=== PATIENT | male | born 1955 | race Caucasian/White ===

== ENCOUNTER 2016-08-12 04:35 | Inpatient (IN) | payer SELFPAY ==
--- NOTE | ~2016-08-12 | DS ---
Discharge Summary [id number] [place]. [address] NAME: DORA HERCULES : 51 STATUS : DIS IN PAT#: [id number] AGE: 61 ADM/REG DATE : 08/12/16 MR#: [id number] REPORT SERV DATE: 09/11/16 DICTATED BY: GRETCHEN DWYER DATE: 09/10/16 REPORT STATUS : Draft TRANSCRIBED BY: NELI DATE: 09/10/16 Data Collection from hospitalization DISCHARGE DIAGNOSIS(ES): 1. Coronary artery disease. 2. Peripheral arterial disease. 3. Chronic obstructive pulmonary disease. 4. Hypertension. 5. History of myocardial infarction. 6. Tobacco use. 7. Peripheral vascular disease. 8. Benign prostatic hypertrophy. 9. Esophageal reflux. CONSULTATIONS: 1. Gretchen Rivera M.D. 2. Johnie Brooks LIABILITY CLAIMS REPRESENTATIVE. 3. Dunia Farnsworth MD. PROCEDURES PERFORMED: 1. Ultrasound-guided percutaneous access right common femoral artery, abdominal aortogram, left leg arteriogram, percutaneous angioplasty of left superficial femoral artery (5 mm x 300 mm balloon), angioplasty and stent reconstruction of occluded left external iliac artery (7 mm x 100 mm Protege EverFlex stent), ultrasound-guided percutaneous access left common femoral artery, right leg arteriogram, stent placed in the right external iliac artery (6 mm x 2.5 cm Viabahn stent), 08/13/2016. 2. Cardiac catheterization, 08/14/2016. 3. Median sternotomy, extracorporeal circulation, urgent coronary artery bypass grafting x4 with DUMONT to the LAD, reverse greater saphenous vein graft to the obtuse marginal #1, and reverse greater saphenous vein graft to the posterior lateral branch of the right coronary artery, reverse greater saphenous vein graft from the posterolateral branch graft to the acute marginal, transesophageal echocardiography, endoscopic vein harvest from the right leg, Prevena dressing placement, 08/20/2016. 4. Arterial duplex echo vascular exam of the left lower extremity, 08/12/2016. 5. CT scan of the chest without contrast, 08/14/2016. 6. Carotid blood flow study, 08/15/2016. 7. Vein mapping of the bilateral lower extremities, 08/15/2016. 8. CT-guided placement of anterior 10-Tajik pigtail catheter in right pleural space- thoracentesis, 08/24/2016. MEDICATIONS: Proventil 1 puff via inhaler every four hours as needed, vitamin C 1000 mg twice a day, aspirin 81 mg daily, Lipitor 40 mg at bedtime, Plavix 75 mg daily, [place] 5/325 one to two tablets every four hours as needed, Lopressor 12.5 mg twice a day, Prilosec 10 mg daily, Deltasone 5 mg twice a day, and Spiriva two puffs via inhaler daily. CONDITION AT DISCHARGE: Stable. DISPOSITION: The patient was discharged home on a low-sodium, low-cholesterol, cardiac diet Discharge Summary [id number] [place]. [address] NAME: DORA HERCULES : 51 STATUS : DIS IN PAT#: [id number] AGE: 61 ADM/REG DATE : 08/12/16 MR#: [id number] REPORT SERV DATE: 09/11/16 DICTATED BY: GRETCHEN DWYER DATE: 09/10/16 REPORT STATUS : Draft TRANSCRIBED BY: NELI DATE: 09/10/16 with activities as instructed. He will follow up with Dr. Dunia Farnsworth 10/19/[address] Zafar Denise 09/25/2016. He would follow up with Dr. Gretchen Dwyer as instructed. He would follow up with Dr. Gretchen Rivera 10/18/2016. HOSPITAL COURSE: This is a 61-year-old man who has a long history of smoking and peripheral arterial disease. He developed sudden severe left leg ischemia with the onset of ischemic rest pain. On evaluation, he was motor-sensory intact. He was anticoagulated and was going to be taken semi-emergently for arteriogram and percutaneous revascularization. He was admitted to the hospital at this time for further evaluation and treatment. Upon admission, arterial duplex echo vascular exam of the left lower extremity with color flow Doppler spectral analysis was performed. No flow was identified in the common femoral, superficial femoral artery, or anterior tibial arteries. The following day, the patient was taken to the endovascular suite where he underwent the above-mentioned procedure. He tolerated this well. There were no complications. Heparin drip was continued. On the , the patient had minimal pain at the groin incisions. He denied any numbness, tingling, or weakness of the extremities. He was afebrile. Plavix, aspirin, and statin were continued. The heparin drip was stopped. He was seen by Dr. Gretchen Rivera regarding chest discomfort. The patient reports that he had coronary stents placed by Dr. Osborn more than 5 years ago. He had not seen Dr. Osborn in about five years. The patient describes having chest discomfort over the past six or seven weeks with minimal activity. He had described a few episodes of breast discomfort. The most recent episode of discomfort was on 08/12/2016, which occurred at rest and lasted about 20 minutes. Troponin was normal at 0.03 at the time of this admission. The patient denies orthopnea or PND. He has had no palpitations. He continues to smoke. EKG revealed sinus rhythm with questionable anterior ischemia. He felt it was safe for the patient to proceed with cardiac catheterization given his rest symptoms and known disease. The patient understands and agrees to proceed. The patient was taken to the cardiac label stamper where he underwent the above-mentioned procedure by Dr. Robbin Alvarez. He tolerated this well. There were no complications. The patient was seen by Johnie Brooks NP, regarding multi-vessel coronary artery disease. The cardiac catheterization had revealed multivessel coronary artery disease including 50% calcification to the left main coronary artery, 95% stenosis to the first diagonal, 100% proximal LAD stenosis which was a chronic total occlusion and was approximately 11 mm in length. There was also 90% proximal left circumflex and 90% first obtuse marginal and also 90% end stent stenosis to the RCA with 90% more distal stenosis. There was also apical akinesis and possible aneurysm, and small focal area of anterior akinesis and a small focal area of inferior hypokinesis which could not rule out left ventricular apical mural thrombus. Echocardiogram was requested. It was felt that he would need to undergo coronary artery bypass grafting. On 08/15/2016, the patient was seen by Dr. Dunia Farnsworth regarding concern for COPD and preoperative evaluation. A CT scan of the chest without contrast had been performed and showed mild to moderate upper lobe predominant central lobular emphysema, but otherwise clear from a pulmonary standpoint. He was felt to have underlying emphysematous chronic obstructive pulmonary disease. It was felt that the benefits of surgery would outweigh the risks from a pulmonary standpoint. The patient understood that he may have prolonged mechanical ventilation and respiratory failure after surgery which may make it difficult for him to be extubated and may lead to prolonged life support. Spiriva therapy was started at Dis[facility] [id number] [place]. [address] NAME: DORA HERCULES : 51 STATUS : DIS IN PAT#: [id number] AGE: 61 ADM/REG DATE : 08/12/16 MR#: [id number] REPORT SERV DATE: 09/11/16 DICTATED BY: GRETCHEN DWYER DATE: 09/10/16 REPORT STATUS : Draft TRANSCRIBED BY: NELI DATE: 09/10/16 this time. We could potentially use DuoNeb after BiPAP. He does not want to use albuterol and gave him a faster heart rate prior to surgery at this moment in time. He felt the patient would need to follow up in two months for pulmonary function testing and further help from a pulmonary standpoint with this patient. He was encouraged to stop smoking. He was evaluated by Occupational Therapy. On the , he did have some chest pain at rest during the night. He had no leg pain issues. He was afebrile. Heparin drip continued. A carotid blood flow study was performed as well as vein mapping of the bilateral lower extremities. He was in a normal sinus rhythm. The next day, he said he had a headache with nitro patch. He had no chest pain. He had no leg issues at this time. The patient was unable to participate with physical therapy evaluation. The next day, he was in a sinus rhythm. He had no chest pain for greater than 24 hours. On the , he continued to have headaches with the nitro paste. Heparin drip continued. Over the next couple of days, he remained stable from a cardiovascular standpoint. His legs seemed to be doing better. He had no chest pain. He had been ambulating. On 08/20/2016, he was taken to the operating room where he underwent the above-mentioned procedure by Dr. Zafar Denise. He tolerated this well. There were no complications. On postop day #1, he felt well. He had mild discomfort. He was in a sinus rhythm. He had minimal chest pain. He had no leg pain or neurologic issues. He did have some nausea. Mediastinal chest tube was removed. Diuresis was started. On the , chest x-ray showed apical pneumothorax and right hydropneumothorax. Phenergan was being given as needed for nausea. FiO2 was being weaned as tolerated. He was evaluated by Physical Therapy. The next day, his nausea had improved. He still had some difficulty clearing secretions. He was not eating much. Plavix remained on hold for now. His amiodarone was decreased. Blood pressure was controlled. On 08/24/2016, he still had some nausea. He had no chest pain, shortness of breath, or edema. He did have a bowel movement. Amiodarone was stopped. He was making slow progression. The patient underwent CT-guided placement of an anterior 10- Taj[place] pigtail catheter in the right pleural space. The majority of the pneumothorax was aspirated. On the , he seemed to be feeling better. His nausea had decreased. His appetite was increasing. He did have some pleuritic pain. He had no edema. He felt better off the amiodarone. Heart rate and blood pressure were controlled. Statin and aspirin were continued. On 08/26/2016, the patient said he was feeling better. His chest tube was going to be clamped at midnight. Blood pressure was controlled. His appetite continued to improve. He was ambulating. His nausea had resolved off the amiodarone. Discharge planning was performed. He had no numbness in the bilateral lower extremities. He did have some pain on top of both feet. He remained in a sinus rhythm. On 08/28/2016, he had no new issues. There was no output from the drain. There was no leak in the water seal. He still required 2 L of O2. He was alert and cooperative. The pigtail catheter was discontinued. Plavix would be resumed at discharge. Discharge instructions were given. Due to his improved and stable condition, he was discharged home with the above-stated instructions. Information collected by: Pebbles Pollock I submit the above information as my discharge summary. Discharge Summary [id number] [place]. [address] NAME: DORA HERCULES : 51 STATUS : DIS IN PAT#: [id number] AGE: 61 ADM/REG DATE : 08/12/16 MR#: [id number] REPORT SERV DATE: 09/11/16 DICTATED BY: GRETCHEN DWYER DATE: 09/10/16 REPORT STATUS : Draft TRANSCRIBED BY: NELI DATE: 09/10/16 TG/NELI Gretchen Dwyer M.D. / [id number] CC: Alexus Cooley M.D. Nathan S. Woody, LIABILITY CLAIMS REPRESENTATIVE
--- NOTE | ~2016-08-12 | PRECARD ---
H&P [facility] [address] [place]. [address] NAME: DORA ROSARIO : 51 STATUS : ADM IN [facility]#: [id number] AGE: 61 ADM/REG DATE : 08/12/16 MR#: [id number] REPORT SERV DATE: 08/14/16 DICTATED BY: GRETCHEN RIVERA DATE: 08/14/16 REPORT STATUS : Draft TRANSCRIBED BY: NELI DATE: 08/14/16 DATE OF ADMISSION: 08/12/2016 HISTORY OF PRESENT ILLNESS: Mr. Dora Rosario is a 61-year-old gentleman with chest discomfort. Mr. Rosario reports he had coronary stents placed by Dr. Osborn more than five years ago. He did not see Dr. Greco for about five years. He has known peripheral vascular disease. He has undergone prior right femoral-popliteal bypass. He was admitted with persistent claudication. On 08/13/2016, he underwent angioplasty to the left superficial femoral artery, with stents placed to both the right and left external iliac arteries. He describes having chest discomfort for the last six or seven weeks with minimal activity. He has had few episodes of rest discomfort. His most recent episode of discomfort was on 08/12/2016, which occurred at rest, lasting about 20 minutes. Troponin was normal at 0.03 upon this admission. He denies any orthopnea or PND. He had no palpitations. He continues to smoke. PAST MEDICAL HISTORY: Tobacco use, peripheral vascular disease, BPH, and esophageal reflux. SOCIAL HISTORY: Ongoing tobacco use. Denies alcohol. MEDICATIONS: Aspirin 81, Lipitor 40, Plavix 75, and Protonix. FAMILY HISTORY: Positive for coronary artery disease. REVIEW OF SYSTEMS: A complete review of systems was obtained, pertinent negative and unremarkable except as noted above. All systems addressed. PHYSICAL EXAMINATION: Bp: 135/80. GENERAL: Comfortable, in no acute distress. HEENT: No xanthelasma; lips without cyanosis LUNGS: Clear to auscultation, no wheezes, rales or rhonchi; good breath sounds. COR: No JVD or hepatojugular reflux, no murmurs, rubs or gallops, impulse mid clavicular line without carotid or abdominal bruits; normal S1 and S2. ABDOMEN: Bowel sounds positive, normal activity, without tenderness, masses or hepatosplenomegaly. EXTREMITIES: No edema, cyanosis. SKIN: Normal turgor. H&P [address] [address] NAME: DORA ROSARIO : 51 STATUS : ADM IN [facility]#: [id number] AGE: 61 ADM/REG DATE : 08/12/16 MR#: [id number] REPORT SERV DATE: 08/14/16 DICTATED BY: GRETCHEN RIVERA DATE: 08/14/16 REPORT STATUS : Draft TRANSCRIBED BY: NELI DATE: 08/14/16 Ms: Normal muscle strength, without kyphosis/scoliosis. NEURO/PSYCH: Alert and oriented times 4, no apparent anxiety or depression. LABORATORY DATA: BUN is 14, creatinine 1.1. Hematocrit 41%. Troponin is 0.03. EKG, sinus rhythm with questionable anterior ischemia. ASSESSMENT: Mr. Rosario is a 61-year-old gentleman with known peripheral vascular disease and coronary artery disease. He has undergone coronary stents placed in the . He underwent revascularization to both legs this admission with bilateral iliac stents and left SFA angioplasty. I think it is safe to proceed with cardiac catheterization, given his rest symptoms and known disease. I discussed the risks, benefits, and alternatives of cardiac catheterization, coronary angioplasty with Mr. Rosario. He understands and requests to proceed. I think he would be a reasonable candidate for drug-eluting stent. HONORIO/NELI Gretchen Rivera M.D. / [id number] CC: Gretchen Dwyer M.D.
--- NOTE | ~2016-08-12 | CN ---
Consultation Report [facility] [address] [place]. [address] NAME: DORA ROSARIO : 51 STATUS : ADM IN PAT#: [id number] AGE: 61 ADM/REG DATE : 08/12/16 MR#: [id number] REPORT SERV DATE: 08/14/16 DICTATED BY: FARAZ COLUNGA DATE: 08/14/16 REPORT STATUS : Draft TRANSCRIBED BY: MODL DATE: 08/14/16 CONSULTATION REPORT DATE OF CONSULTATION: 08/14/2016 REASON FOR CONSULTATION: Multivessel coronary artery disease. HISTORY OF PRESENT ILLNESS: This is a pleasant 61-year-old male who has a history of coronary artery disease [place] [address] Osborn. He has not seen a stained glass artist in over five years. He has known peripheral vascular disease with prior fem- pop bypass. He was admitted two days ago and underwent angioplasty to his left superficial femoral artery with stenting to both right and left external iliac arteries by Dr. Dwyer. As mentioned above, the patient has a history of coronary artery disease as well as a strong family history of heart disease and brother and sister who have both undergone bypass surgery. He also has a history of heavy tobacco abuse for a long period of time and reports that he has been having chest pain for around six to seven weeks now which is often with activity, but occasionally with rest. He also complains of shortness of breath with even a moderate amount of activity, which usually precedes any chest pain. The patient has not been evaluated for this up until now. He was started on Plavix yesterday with 300 mg given and another 75 mg given today. He was taken for cardiac catheterization today and found to have multivessel coronary artery disease including a 50% calcification to the left main coronary artery disease, 95% stenosis to the first diagonal, 100% proximal LAD stenosis which is a chronic total occlusion and is approximately 11 mm in length. There is also a 90% proximal left circ and a 90% first obtuse marginal, also 90% in-stent stenosis to the RCA with 90% more distal stenosis. There is also apical akinesis and possible aneurysm, small focal area of anterior akinesis and a small focal area of inferior hypokinesis which cannot rule out left ventricular apical mural thrombus. Echocardiogram has been ordered to further evaluate this finding. Cardiothoracic Surgery was consulted to evaluate the patient for coronary artery bypass grafting. Currently, the patient is recovering after right radial arteriogram with no complaints of chest pain or shortness of breath. His is with him at the bedside. Additionally, his ejection fraction is estimated around 45%. PAST MEDICAL HISTORY: PVD, coronary artery disease, BPH, GERD, and ongoing tobacco abuse. SOCIAL HISTORY: He is . Has smoked cigarettes, rated two pack per day for over 50 years. He does not work. Denies any history of alcohol abuse or use of illicit drugs. PAST SURGICAL HISTORY: Cardiac stents in 1992, fem-pop bypass, and recent iliac stents. FAMILY HISTORY: He has a strong family history of coronary artery disease. REVIEW OF SYSTEMS: A 10-point review of systems was obtained and is negative other than HPI. Consultation Report [address] [address] NAME: DORA ROSARIO : 51 STATUS : ADM IN [facility]#: [id number] AGE: 61 ADM/REG DATE : 08/12/16 MR#: [id number] REPORT SERV DATE: 08/14/16 DICTATED BY: FARAZ COLUNGA DATE: 08/14/16 REPORT STATUS : Draft TRANSCRIBED BY: NELI DATE: 08/14/16 PHYSICAL EXAMINATION: VITAL SIGNS: From today, temperature 98 degrees, heart rate 75, blood pressure 120/70, respiratory rate 17, and O2 saturation 100% on 2 liters. GENERAL: Thin, ill-appearing for his age male, in no acute distress. NEUROLOGIC: Alert and oriented x3. Pupils are equal, round, reactive to light and accommodation. Exhibits equal strength in bilateral upper extremities and bilateral lower extremities. CARDIAC: S1 and S2 with no murmurs, rubs, or gallops. Carotids upon auscultation with no obvious bruits. LUNGS: Clear to auscultation bilaterally with normal effort. ABDOMEN: Soft, thin, and nontender with active bowel sounds. EXTREMITIES: Free of cyanosis, clubbing, or edema. HEENT: Head is normocephalic and atraumatic. Sclerae are clear. Nose is midline with no abnormality. Teeth with poor dentition. Ears with no abnormality. NECK: Supple with no thyromegaly or lymphadenopathy. PSYCH: Normal mood, pleasant, talkative. LABORATORY DATA: White blood cell count 8.7, hemoglobin 14.1, hematocrit 41.3, and platelets 276. Sodium 140, potassium 4.0, chloride 104, bicarbonate 31, BUN 10, creatinine 0.9, and glucose 105. ASSESSMENT AND PLAN: This is a 61-year-old male with a longstanding history of coronary artery disease, status post coronary artery stents in 1992 and also has a history of peripheral vascular disease with a strong family history of coronary artery disease and history of heavy tobacco abuse. He has had chronic shortness of breath with mild-to- moderate activity, which usually develops into chest pain. The patient was admitted for femoral artery angioplasty and iliac stenting. He underwent cardiac catheterization today and was found to have severe multivessel coronary artery disease as described above. There is also a question of whether or not he has a left ventricular thrombus. We are waiting echocardiogram results to determine whether this is the case. The patient needs coronary artery revascularization, but will need to wait for Plavix washout. We will hold the Plavix for now and await findings of echocardiogram. I will also get a CT scan of his chest without contrast as well as bilateral lower extremity venous mapping and carotid ultrasound in anticipation for bypass surgery. We will also get PFTs and ask Pulmonary to see him in regard to his chronic shortness of breath and what I suspect some degree of chronic obstructive pulmonary disease. I discussed this plan with the patient and he is agreeable. I also discussed the risk and benefits of the coronary artery bypass grafting as well as his options and STS risk stratification for him and this particular surgery include an overall mortality of 0.9% and a morbidity mortality of 9.9%. I discussed these findings in relation to anticipation for surgery and recovery, and he is agreeable to proceed. We will likely proceed with surgery some time early next week. We would like to thank you for the consultation and we look forward to helping you to take care of Mr. Dora Rosario. Consultation Report [facility] [address] [facility] [place]. [address] NAME: DORA ROSARIO : 51 STATUS : ADM IN PAT#: [id number] AGE: 61 ADM/REG DATE : 08/12/16 MR#: [id number] REPORT SERV DATE: 08/14/16 DICTATED BY: FARAZ COLUNGA DATE: 08/14/16 REPORT STATUS : Draft TRANSCRIBED BY: NELI DATE: 08/14/16 ANDER/NELI Faraz Colunga NP / [id number] CC: Aditya Dwyer M.D.
--- NOTE | ~2016-08-12 | OP ---
Record Of Operation [facility] [address] [place]. [address] NAME: DORA ROSARIO : 51 STATUS : ADM IN PAT#: [id number] AGE: 61 ADM/REG DATE : 08/12/16 MR#: [id number] REPORT SERV DATE: 08/14/16 DICTATED BY: GRETCHEN DWYER DATE: 08/14/16 REPORT STATUS : Draft TRANSCRIBED BY: MODL DATE: 08/14/16 DATE OF PROCEDURE: 08/13/2016 PREOPERATIVE DIAGNOSIS: Subacute left lower extremity ischemia with ischemic rest pain. POSTOPERATIVE DIAGNOSIS: Subacute left lower extremity ischemia with ischemic rest pain. PROCEDURES: 1. Ultrasound-guided percutaneous access, right common femoral artery. 2. Abdominal aortogram. 3. Left leg arteriogram. 4. Percutaneous angioplasty of left superficial femoral artery (5 mm x 300 mm balloon). 5. Angioplasty and stent reconstruction of occluded left external iliac artery (7 mm x 100 mm Protege EverFlex stent). 6. Ultrasound-guided percutaneous access, left common femoral artery. 7. Right leg arteriogram. 8. Stent placed in the right external iliac artery (6 mm x 2.5 cm Viabahn stent). GRINDER SET UP OPERATOR CENTERLESS: Dirk. ANESTHESIA: Local with MAC. ESTIMATED BLOOD LOSS: 20 mL. CONTRAST: 107 mL. IV FLUIDS: 400 mL. COMPLICATIONS: Right femoral access site complication treated with Viabahn stent. INDICATION: Mr. Rosario is a 61-year-old man with a long history of smoking, peripheral arterial disease. He developed sudden severe left leg ischemia with onset of ischemic rest pain. Upon evaluation, he was motor-sensory intact. He was anticoagulated and brought semi urgently for arteriogram, percutaneous revascularization. DETAILS OF PROCEDURE: After informed consent was obtained, the patient was brought to the endovascular suite and placed in supine position. After administration of IV sedation, he was prepped and draped in usual sterile fashion. A time-out was performed. I commenced the procedure with ultrasound-guided percutaneous access, right common femoral artery. This was done after anesthetizing the right groin with local anesthetic. A permanent image of the artery documenting patency was saved and stored in the patient's chart. I accessed with a micropuncture needle, passed a micropuncture wire, and confirmed intra-arterial under fluoroscopy. I then upsized to a 5-Mexican sheath over a Bentson wire. I advanced the Bentson wire and Trenton flush catheter into the abdominal aorta. Abdominal aortogram was performed, which showed the infrarenal aorta to be patent with no stenosis or aneurysmal disease. There was moderate atherosclerotic disease. Single renal arteries were patent Record Of Operation [facility] [address] [place]. [address] NAME: DORA ROSARIO : 51 STATUS : ADM IN PAT#: [id number] AGE: 61 ADM/REG DATE : 08/12/16 MR#: [id number] REPORT SERV DATE: 08/14/16 DICTATED BY: GRETCHEN DWYER DATE: 08/14/16 REPORT STATUS : Draft TRANSCRIBED BY: MODL DATE: 08/14/16 bilaterally with no stenosis. Common iliacs are heavily diseased bilaterally with no high- grade stenosis. External iliac has diffuse stenosis throughout its length on the right. The internal iliac appears to be chronically occluded. On the left, the internal iliac was patent. The external iliac is completely occluded. There was reconstitution of the common femoral artery on the left. After that, I pulled the flush catheter down to the bifurcation. I used a Trenton flush catheter and a Glidewire to cross through the occluded external iliac artery. I advanced the flush catheter down to the common femoral artery and performed left leg arteriogram. This showed the common femoral and deep femoral artery to be patent with no stenosis. The SFA has flush chronic occlusion throughout its length. There was reconstitution to the above knee popliteal artery through collaterals. Contrast flow below the knee is sluggish. However, there was evidence that there is an abnormally high takeoff to the posterior tibial artery, which is patent and appears to be the dominant runoff vessel. The peroneal artery is patent. The anterior tibial artery appears to be chronically occluded. After that, we placed a Glidewire. We systemically heparinized. I exchanged a 5-Mexican sheath for a 7 x 45 sheath over the bifurcation with the tip of the sheath in the left common femoral artery. I then used a andrew 2 and Glidewire to engage the occluded SFA. I navigated through the first half of the occlusion with a andrew 2 and Glidewire. Then, exchanged for an angle TrailBlazer. Using that and the Glidewire, I was able to cross through the occluded SFA most likely in a subintimal plane. I advanced the catheter over the wire beyond the occlusion performed contrast injection to ensure I was in the true lumen. I then exchanged for a V18 wire. I then performed balloon angioplasty first with a 4 mm balloon throughout the length of the SFA. The SFA was severely calcified. This resulted in patency, but significant residual stenosis. I then upsized to a 5 mm x 300 mm balloon. Repeat contrast injection now shows the entire SFA to be widely patent. Remarkably, there was no significant dissection. There was only mild residual stenosis remaining. After that, we turned our attention to the external iliac artery. Balloon angioplasty was performed with a 6 mm balloon. There was significant recoil and dissection. As a result, a 7 mm x 100 mm Protege stent was placed in the external iliac artery. We post dilated with a 6 mm balloon. This shows the external iliac artery to be widely patent now with no residual stenosis and good flow distally. There was no evidence of distal embolization. There was good transit time to the foot with significant improvement overall. After that, wires and catheters were removed. We pulled the sheath back over the bifurcation. Right femoral artery arteriogram was performed. This showed the puncture site in the distal external iliac artery. As a result, ProGlide closure device was deployed seemingly without incident. However, when the drapes were removed, no appreciable Doppler signals were found in the right leg where as he had had them before the procedure. The patient remained in the endovascular suite. We re-prepped and draped. I accessed the left common femoral artery with a micropuncture needle, passed a micropuncture wire. I then upsized to a 5-Mexican sheath over a Bentson wire. I used a glide wire and Trenton flush catheter crossover from the left, now across the bifurcation to the right external iliac artery. Arteriogram was performed, which shows near occlusion at the site of the closure device. I crossed this area with a Glidewire. I then exchanged the 5-Mexican sheath for a 6 x 45 sheath. We then exchanged for a V18 wire. I then placed a 6 mm x 2.5 cm Viabahn across the area of closure device. This was post-dilated with a 6 mm balloon. Repeat contrast injection shows good flow through the stent with no contrast extravasation at the access site. There was good flow distally in his bypass. The bypass anastomoses were patent proximally and distally. Pulses were checked again and he had return of palpable Record Of Operation [facility] [id number] [place]. [address] NAME: DORA ROSARIO : 51 STATUS : ADM IN PAT#: [id number] AGE: 61 ADM/REG DATE : 08/12/16 MR#: [id number] REPORT SERV DATE: 08/14/16 DICTATED BY: GRETCHEN DWYER. DATE: 08/14/16 REPORT STATUS : Draft TRANSCRIBED BY: MODL DATE: 08/14/16 dorsalis pedis and posterior tibial pulses on the right. After that, the left femoral sheath was removed and manual pressure held for hemostasis. Sterile dressings were applied. The patient tolerated the procedure well with no complications other than that mentioned above. I was present for this entire case as dictated. VIVI/NELI Gretchen Dwyer M.D. / [id number] CC: Gretchen Dwyer M.D.
--- NOTE | ~2016-08-12 | CN ---
Consultation Report [facility] [address] [place]. [address] NAME: DORA ROSARIO : 51 STATUS : ADM IN PAT#: [id number] AGE: 61 ADM/REG DATE : 08/12/16 MR#: [id number] REPORT SERV DATE: 08/15/16 DICTATED BY: DUNIA FARNSWORTH DATE: 08/15/16 REPORT STATUS : Draft TRANSCRIBED BY: MODL DATE: 08/15/16 PULMONARY CONSULT DATE OF CONSULTATION: 08/15/2016 REASON FOR CONSULTATION: Concern for COPD, preop evaluation. CHIEF COMPLAINT: Chest pains for the last six weeks. HISTORY OF PRESENT ILLNESS: Mr. Rosario is a 61-year-old gentleman with a past medical history of peripheral arterial disease with a myocardial infarction in 1994, who presented with chest pain over the past six weeks. The patient is noted to have coronary stents placed years ago. He underwent a cardiac catheterization which showed three-vessel disease and left main disease. He also underwent a procedure by Dr. Dwyer. The patient currently from a Pulmonary standpoint, notes that his shortness of breath has significantly worsened over the last couple of years. He is able to go up two flights of stairs slowly, but does not think he can go up three flights of stairs. He has limited exercise capability, but still is able to move around his house freely, cut his own grass, he is able to go shopping. He just feels that his ability has decreased. He is on no inhalers and has not been seeing physicians. He is not on any oxygen therapy. His last pneumonia event was four years ago and does not have what sounds to be bronchitis or exacerbations of COPD. He notes that he is not surprised that he has emphysema on the CT scan. He was having chest pain, but now believes that this was secondary to the coronary artery disease, his lungs as he originally thought. Otherwise, the patient does have a cough, but no significant sputum production, no significant hemoptysis. Otherwise, no further complaints. PAST MEDICAL HISTORY: Peripheral arterial disease, coronary artery disease, now diagnosed with left main and coronary artery disease three-vessel, right femoral-popliteal bypass, claudication, angioplasty to the left femoral artery and stents placed to the iliac arteries, tobacco use, reflux. MEDICATIONS: Home Medications: None. The patient has now been started on aspirin, Lipitor, Plavix, Protonix. ALLERGIES: NONE. SOCIAL HISTORY: The patient has been smoking from the age of 13, two packs per day. No alcohol or illicit drug use. The patient is not working anymore due to worsening shortness of breath and overall health. FAMILY HISTORY: Other family members with heart disease and need of open heart surgery. REVIEW OF SYSTEMS: All pertinent review of systems reviewed and is otherwise negative. Consultation Report [place] [facility] [id number] [place]. [address] NAME: DORA ROSARIO : 51 STATUS : ADM IN [facility]#: [id number] AGE: 61 ADM/REG DATE : 08/12/16 MR#: [id number] REPORT SERV DATE: 08/15/16 DICTATED BY: DUNIA FARNSWORTH DATE: 08/15/16 REPORT STATUS : Draft TRANSCRIBED BY: NELI DATE: 08/15/16 PHYSICAL EXAMINATION: VITAL SIGNS: The patient is currently afebrile, heart rate anywhere between 77 and 102, respiratory rate 16 to 20, oxygen saturation 93% to 96% on room air, blood pressure currently anywhere between 100 and 150. GENERAL: The patient is alert and oriented, no acute distress, no dyspnea on exertion, no pursing of the lips. HEENT: No JVD. PULMONARY: Surprisingly clear to auscultation bilaterally, no crackles. No wheezing. CARDIAC: Regular rate, no murmurs. ABDOMEN: Firm, but no pain, no distention. LOWER EXTREMITIES: Peripheral pulses noted in all extremities, somewhat faint however, extremities lukewarm. NEUROLOGIC: No focal neurological deficits. LABORATORY EXAMINATION: Hemoglobin 13.7, no leukocytosis, good kidney function. IMAGING DATA: CT scan shows kgqk-[id number] upper lobe predominant central lobular emphysema, but otherwise clear from a Pulmonary standpoint. ASSESSMENT AND PLAN: Mr. Rosario is a 61-year-old gentleman with a past medical history of what seems to be tobacco use and underlying emphysematous chronic obstructive pulmonary disease. Our recommendations are below: Preop pulmonary evaluation for coronary artery bypass grafting, according to the ARISCAT risk index, the patient is at intermediate risk of pulmonary complications which is 13.3%. [facility] failure index is at 10.1%. I discussed with the patient at length that most likely in this situation the benefits of going through surgery outweigh the risks from a pulmonary standpoint. The patient is aware that he may have a prolonged mechanical ventilation and respiratory failure after surgery, which may make it difficult for him to get extubated and may lead to prolonged life support. Chronic obstructive pulmonary disease and emphysema: Discussed with the patient. We will go ahead and start Spiriva therapy at this moment in time. Can potentially use DuoNeb after bypass. Do not want to use albuterol and give him a faster heart rate prior to surgery at this moment in time. The patient will need to follow up in two months with a pulmonary function testing and further help from a pulmonary standpoint with this patient. Tobacco use: Discussed with the patient for greater than 3 minutes the need for tobacco cessation. Thank you very much for this consultation, please call us with any further questions or concerns. Consultation Report [address] [place]. [address] NAME: DORA ROSARIO : 51 STATUS : ADM IN PAT#: [id number] AGE: 61 ADM/REG DATE : 08/12/16 MR#: [id number] REPORT SERV DATE: 08/15/16 DICTATED BY: DUNIA FARNSWORTH DATE: 08/15/16 REPORT STATUS : Draft TRANSCRIBED BY: NELI DATE: 08/15/16 JAMMIE/NELI Dunia Farnsworth MD / [id number] CC: Aditya Dwyer M.D.
--- NOTE | ~2016-08-12 | PUL ---
[facility] [place] [id number] [place]. [address] NAME: DORA HECRULES : 51 STATUS : ADM IN [facility]#: [id number] AGE: 61 ADM/REG DATE : 08/12/16 MR#: [id number] REPORT SERV DATE: 08/17/16 DICTATED BY: SALMA DICKEY DATE: 08/17/16 REPORT STATUS : Draft TRANSCRIBED BY: MODL DATE: 08/17/16 PULMONARY FUNCTION TEST DIAGNOSIS: Left leg ischemia. SPIROMETRIC DATA: FEV1 of 1.62 L, 42%. FVC 63% with a ratio of 50. Diffusion capacity is 34%. INTERPRETATION: Severe airflow obstruction with concomitant reduction in forced vital capacity and a severe reduction in diffusion capacity. The constellation of findings is consistent with underlying emphysematous COPD. However, other diagnoses are of concern. Clinical correlation is needed and furthermore, a plethysmography will help define this restrictive ventilatory defect if needed. HFQ/MODL Salma Dickey MD / [id number] CC: Aditya Dwyer M.D.
--- NOTE | ~2016-08-12 | OP ---
Record Of Operation [facility] [address] [place]. [address] NAME: DORA ROSARIO : 51 STATUS : ADM IN PAT#: [id number] AGE: 61 ADM/REG DATE : 08/12/16 MR#: [id number] REPORT SERV DATE: 08/20/16 DICTATED BY: ZAFAR BERG DATE: 08/20/16 REPORT STATUS : Draft TRANSCRIBED BY: MODL DATE: 08/20/16 DATE OF PROCEDURE: 08/20/2016 REFERRING PHYSICIAN: Dr. Robbin Alvarez and Aditya Dwyer. QUALITY OFFICER: Antonieta Burgos and Lamont Berg. ANESTHESIOLOGIST: Dr. Tyson Smith. PREOPERATIVE DIAGNOSES: 1. Syk-YJ-hupwist elevation myocardial infarction. 2. Three-vessel coronary artery disease. 3. Hypertension. 4. Hyperlipidemia. 5. Severe tobacco abuse. 6. Chronic obstructive pulmonary disease. 7. Peripheral vascular disease. POSTOPERATIVE DIAGNOSES: 1. Cia-NJ-xpxxbww elevation myocardial infarction. 2. Three-vessel coronary artery disease. 3. Hypertension. 4. Hyperlipidemia. 5. Severe tobacco abuse. 6. Chronic obstructive pulmonary disease. 7. Peripheral vascular disease. OPERATION/PROCEDURE PERFORMED: 1. Median sternotomy. 2. Extracorporeal circulation. 3. Urgent coronary artery bypass grafting x4, left internal mammary artery, left anterior descending, reverse greater saphenous vein graft to obtuse marginal #1, reverse greater saphenous vein graft to posterior lateral branch of the right coronary artery, reverse greater saphenous vein graft from the posterolateral branch graft to the acute marginal. 4. Transesophageal echocardiography. 5. Endoscopic vein harvest to right leg. 6. Prevena dressing placement. COMPLICATIONS: None. TUBES AND DRAINS: A 24-Ukrainian Alberto to left pleural space, a 32-Ukrainian straight mediastinal chest tube, atrial and ventricular wires. POSTOPERATIVE CONDITION: To CVICU on 5 mcg per kilo per minute of dobutamine. Record Of [facility] [address] [place]. [address] NAME: DORA ROSARIO : 51 STATUS : ADM IN PAT#: [id number] AGE: 61 ADM/REG DATE : 08/12/16 MR#: [id number] REPORT SERV DATE: 08/20/16 DICTATED BY: ZAFAR BERG DATE: 08/20/16 REPORT STATUS : Draft TRANSCRIBED BY: NELI DATE: 08/20/16 DETAILS OF CARDIOPULMONARY BYPASS: Cross-clamp time 104 minutes. Total cardiopulmonary bypass time 122 minutes. INTRAOPERATIVE FINDINGS: Decent vein, 4-5 mm, DUMONT with good quality of 2.5 mm. Excellent Doppler signals in the LAD, obtuse marginal, and acute marginal grafts. There was decent Doppler signal in the PLV graft. The PDA is too small and too diffusely diseased to bypass. The PLV and PDA are not redo candidates. DETAILS OF TRANSESOPHAGEAL ECHO: Echo showed EF approximately 40%. Apical akinesis. No clot in the apex. No MR. No AI. No . Preserved wall motion post bypass. DETAILS OF CARDIOPULMONARY BYPASS GRAFTS: 1. DUMONT to left anterior descending was 2 mm, diffusely diseased target. 2. Reverse greater saphenous vein graft to obtuse marginal #1, inferior branch, this was 2 mm target. 3. Reverse greater saphenous vein graft to posterior lateral branch, this was 1.3 mm target. 4. Reverse greater saphenous vein graft from the graft #3 to the acute marginal, this was 1.5 mm target. INDICATIONS FOR PROCEDURE: Mr. Rosario is a 61-year-old gentleman who was admitted with a cold leg, was found to have severe peripheral vascular disease that was noted and underwent bilateral iliac stents. He is tobacco smoker and has continued to smoke in the face of his severe peripheral vascular disease. He was diagnosed with NSTEMI and was taken to the labor delivery rn. Cath revealed severe three-vessel coronary artery disease. Risks, benefits, and alternatives were discussed with the patient including but not limited to, bleeding, infection, stroke, , heart attack, need for future operations. All questions were answered. STS risk were calculated and discussed with the patient. STS mortality risk was less than 5%. Total complication rate of less than 20% were discussed. He awaited a Plavix washout and was taken to the operating room. DETAILS OF PROCEDURE: The patient was brought to the operating room and placed on the operating room table. After satisfactory induction of general endotracheal anesthesia, he was prepped and draped in usual sterile fashion. Working simultaneously, median sternotomy was performed while endoscopic vein harvest was performed from the right leg. Skin and subcutaneous tissues were divided. Clavipectoral fascia was divided. The sternum was divided in the midline. The Rultract retractor was placed and the internal mammary artery was harvested in a pedicle fashion from its takeoff under the subclavian vein to the bifurcation of the diaphragm. It was relatively high bifurcation. Systemic heparinization was achieved. Pedicle was infiltrated with papaverine. After 3 minutes, the pedicle was clipped and divided with bifurcation of the diaphragm. Rultract retractor was removed. A 24-Ukrainian Alberto was placed in the left pleural space and exteriorized. The sternal retractor was placed. Thymic tissue was divided in the midline up to the innominate vein. Pericardium was opened and pericardial well was created. Ascending aortic cannulation was achieved through dual pursestrings at the base of the innominate artery. Antegrade root vent cardioplegia tack was placed and a dual stage venous cannulas placed in the right atrial appendage through a single pursestring. The conduit was brought up and prepared for Record Of Operation [address] [address] NAME: DORA ROSARIO : 51 STATUS : ADM IN [facility]#: [id number] AGE: 61 ADM/REG DATE : 08/12/16 MR#: [id number] REPORT SERV DATE: 08/20/16 DICTATED BY: ZAFAR BERG DATE: 08/20/16 REPORT STATUS : Draft TRANSCRIBED BY: NELI DATE: 08/20/16 bypass and inspected. The internal mammary artery was brought down through a wide V in the pericardium, prepared for bypass. Cardiopulmonary bypass was initiated after documentation of an adequate ACT. Targets were inspected. The PLV was felt to be a marginal target for bypass. The PDA was too small and too diffusely diseased. The acute marginal was felt to be an okay target for bypassing the obtuse marginal #1, inferior division as it was slightly larger, and the LAD. Cross-clamp was brought up and the heart was arrested with cold antegrade cardioplegia, switching to cold antegrade cardioplegia every 15 to 20 minutes throughout the remainder of the cross-clamp. The grafts were performed as mentioned in the findings. All distal grafts were done with 8-0 Surgipro. There was excellent Doppler flow in the mammary after the construction of the anastomosis. The pedicle was attached to the heart in two places using 6-0 Prolene. The two proximals were constructed after cutting the graft to length. Aortotomy was performed, enlarged with a 5.2 mm punch. The veins were spatulated and running continuous anastomosis were performed. The acute marginal graft, was felt that there was not enough vein for it to reach the aorta, so was brought off the posterolateral branch graft in an end-to-side fashion using 7-0 Prolene. Vein graft markers were placed on the two proximal grafts. Cross-clamp was removed. Pacing wires were placed. The patient was able to be weaned from cardiopulmonary bypass. Protamine was administered. Hemostasis was obtained. The patient was decannulated. All cannulation sites were oversewn with 4-0 Prolene. The ascending aorta and right ventricle were covered with pericardium, which was loosely reapproximated. A 32 straight chest tube was brought in under the sternum and exteriorized. The sternum was reapproximated using stainless steel sternal wires, some of these were double wires. Clavipectoral fascia was reapproximated using running #1 StrataFix, subcutaneous tissues closed using running #1 StrataFix, and the skin using 2-0 Quill. Prevena dressing was placed. The patient was transferred to the CVICU in critical, stable condition. C/MODL Zafar Berg MD / [id number] CC: Alexus Cooley M.D.
[2016-08-12 03:20] LABS: BASOPHILS 0.4 %; BASOPHILS ABSOLUTE 0.04 10/3/uL (0.0-0.16); EOSINOPHILS 0.9 %; HEMATOCRIT 41.2 % (40.0-51.0); HEMOGLOBIN 14.3 g/dL (13.6-17.8); IMMATURE GRANULOCYTES 0.2 %; IMMATURE GRANULOCYTES ABSOLUTE 0.02 10/3/uL (0.0-0.11); LYMPHOCYTES 28.5 %; LYMPHOCYTES ABSOLUTE 3.22 10/3/uL (0.67-4.30); MEAN CORPUS HGB CONC 34.7 g/dL (32.0-36.0); MEAN CORPUSCULAR HEMOGLOB 35.9 pg (26.0-34.0); MONOCYTES ABSOLUTE 0.68 10/3/uL (0.21-1.20); NEUTROPHILS ABSOLUTE 7.25 10/3/uL (2.02-8.40); PLATELET COUNT 277 10/3/uL (150-400); RBC DISTRIBUTION WIDTH 13.6 % (12.0-16.0); RED CELL COUNT 3.98 10/6/uL (4.7-6.1); WHITE BLOOD CELLS 11.3 10/3/uL (4.5-10.5)
[2016-08-12 03:21] LABS: MANUAL DIFF NO %; MEAN CORPUSCULAR VOLUME 103.5 fL (80-100)
[2016-08-12 03:35] LABS: INTERNATIONAL NORMAL RATI 1.1 UNITS (-); PARTIAL THROMBO TIME 30.2 SEC (22.5-37.2); PROTIME (NOT ORD) 13.9 SEC (12.0-14.5)
[2016-08-12 03:38] LABS: CALCIUM, SERUM 8.6 MG/DL (8.5-10.4); CHEST PAIN PROFILE TAT 0 Hrs 22 Mins; CHLORIDE, SERUM 104 MMOL/L (96-112); CO2 (CARBON DIOXIDE) 30 MMOL/L (24-34); GFR AFRICAN AMERICAN 82 ML/MIN (>=60); GFR NON AFRICAN AMERICAN 71 ML/MIN (>=60); POTASSIUM, SERUM 3.9 MMOL/L (3.5-5.3); SODIUM, SERUM 141 MMOL/L (135-148); TROPONIN I 0.03 NG/ML (<0.05)
[2016-08-12 03:39] LABS: BUN (BLOOD UREA NITROGEN) 14 MG/DL (6-23); GLUCOSE, SERUM 88 MG/DL (60-99)
[~2016-08-12 04:35] MED LIST: ASA5GR PO; CRESTOR10 PO; GOODY'S HEADAC1 EACH PO; PLAVIX PO; PRILOSEC10 MG PO; ULTRAM50 PO
[2016-08-13 10:13] LABS: BASOPHILS 0.5 %; BASOPHILS ABSOLUTE 0.04 10/3/uL (0.0-0.16); EOSINOPHILS 1.8 %; EOSINOPHILS ABSOLUTE 0.14 10/3/uL (0.0-0.53); HEMATOCRIT 41.9 % (40.0-51.0); HEMOGLOBIN 14.3 g/dL (13.6-17.8); IMMATURE GRANULOCYTES 0.1 %; IMMATURE GRANULOCYTES ABSOLUTE 0.01 10/3/uL (0.0-0.11); LYMPHOCYTES 38.4 %; LYMPHOCYTES ABSOLUTE 3.01 10/3/uL (0.67-4.30); MEAN CORPUS HGB CONC 34.1 g/dL (32.0-36.0); MEAN CORPUSCULAR HEMOGLOB 35.6 pg (26.0-34.0); MEAN CORPUSCULAR VOLUME 104.2 fL (80-100); MEAN PLATELET VOLUME 9.1 fL (9.2-13.0); MONOCYTES 7.8 %; MONOCYTES ABSOLUTE 0.61 10/3/uL (0.21-1.20); NEUTROPHILS 51.4 %; NEUTROPHILS ABSOLUTE 4.03 10/3/uL (2.02-8.40); PLATELET COUNT 285 10/3/uL (150-400); RBC DISTRIBUTION WIDTH 13.7 % (12.0-16.0); RED CELL COUNT 4.02 10/6/uL (4.7-6.1); WHITE BLOOD CELLS 7.8 10/3/uL (4.5-10.5)
[2016-08-13 10:17] LABS: MANUAL DIFF NO %
[2016-08-13 10:23] LABS: BUN (BLOOD UREA NITROGEN) 10 MG/DL (6-23); CALCIUM, SERUM 8.7 MG/DL (8.5-10.4); CHLORIDE, SERUM 106 MMOL/L (96-112); CO2 (CARBON DIOXIDE) 28 MMOL/L (24-34); GFR AFRICAN AMERICAN 92 ML/MIN (>=60); GFR NON AFRICAN AMERICAN 80 ML/MIN (>=60); GLUCOSE, SERUM 103 MG/DL (60-99); POTASSIUM, SERUM 4.4 MMOL/L (3.5-5.3); SODIUM, SERUM 138 MMOL/L (135-148)
[2016-08-14 01:56] LABS: BASOPHILS 0.3 %; BASOPHILS ABSOLUTE 0.03 10/3/uL (0.0-0.16); EOSINOPHILS 1.5 %; EOSINOPHILS ABSOLUTE 0.13 10/3/uL (0.0-0.53); HEMATOCRIT 41.3 % (40.0-51.0); HEMOGLOBIN 14.1 g/dL (13.6-17.8); IMMATURE GRANULOCYTES 0.1 %; IMMATURE GRANULOCYTES ABSOLUTE 0.01 10/3/uL (0.0-0.11); LYMPHOCYTES 35.8 %; MANUAL DIFF NO %; MEAN CORPUS HGB CONC 34.1 g/dL (32.0-36.0); MEAN CORPUSCULAR HEMOGLOB 35.8 pg (26.0-34.0); MEAN CORPUSCULAR VOLUME 104.8 fL (80-100); MONOCYTES 7.3 %; MONOCYTES ABSOLUTE 0.63 10/3/uL (0.21-1.20); NEUTROPHILS ABSOLUTE 4.76 10/3/uL (2.02-8.40); PLATELET COUNT 276 10/3/uL (150-400); RBC DISTRIBUTION WIDTH 13.5 % (12.0-16.0); RED CELL COUNT 3.94 10/6/uL (4.7-6.1); WHITE BLOOD CELLS 8.7 10/3/uL (4.5-10.5)
[2016-08-14 02:03] LABS: PARTIAL THROMBO TIME 49.7 SEC (22.5-37.2)
[2016-08-14 02:10] LABS: BUN (BLOOD UREA NITROGEN) 10 MG/DL (6-23); CALCIUM, SERUM 8.7 MG/DL (8.5-10.4); CHLORIDE, SERUM 104 MMOL/L (96-112); CO2 (CARBON DIOXIDE) 31 MMOL/L (24-34); GFR AFRICAN AMERICAN 105 ML/MIN (>=60); GFR NON AFRICAN AMERICAN 91 ML/MIN (>=60); GLUCOSE, SERUM 93 MG/DL (60-99); SODIUM, SERUM 140 MMOL/L (135-148)
[2016-08-14 12:22] LABS: INTERNATIONAL NORMAL RATI 1.1 UNITS (-); PROTIME (NOT ORD) 13.6 SEC (12.0-14.5)
[2016-08-14 12:27] LABS: CHOL/HDL RATIO(NOT ORDER) 4.6 (0-5); CHOLESTEROL 189 MG/DL (< 200); HDL CHOLESTEROL 41 MG/DL (> 39); LDL CHOLESTEROL 116 MG/DL (< 130); NON-HDL CHOLESTEROL 148 MG/DL (< 160)
[2016-08-14 12:28] LABS: TRIGLYCERIDE 163 MG/DL (< 150)
[2016-08-14 17:58] LABS: WBC (NOT ORDERED) (RFLEX) 0 (0-5)
[2016-08-14 18:32] LABS: ASCORBIC ACID (UR NOT ORDER) NEG (NEG); BILIRUBIN, URINE NEGATIVE (NEG); KETONE, URINE TRACE MG/DL (NEG); LEUKOCYTE ESTERASE(NOT OR NEG (NEG)
[2016-08-15 04:28] LABS: BASOPHILS 0.3 %; BASOPHILS ABSOLUTE 0.02 10/3/uL (0.0-0.16); EOSINOPHILS ABSOLUTE 0.16 10/3/uL (0.0-0.53); HEMATOCRIT 39.6 % (40.0-51.0); HEMOGLOBIN 13.7 g/dL (13.6-17.8); IMMATURE GRANULOCYTES 0.1 %; IMMATURE GRANULOCYTES ABSOLUTE 0.01 10/3/uL (0.0-0.11); LYMPHOCYTES 22.8 %; LYMPHOCYTES ABSOLUTE 1.78 10/3/uL (0.67-4.30); MEAN CORPUS HGB CONC 34.6 g/dL (32.0-36.0); MEAN CORPUSCULAR HEMOGLOB 35.6 pg (26.0-34.0); MEAN CORPUSCULAR VOLUME 102.9 fL (80-100); MONOCYTES 9.2 %; MONOCYTES ABSOLUTE 0.72 10/3/uL (0.21-1.20); NEUTROPHILS 65.6 %; NEUTROPHILS ABSOLUTE 5.12 10/3/uL (2.02-8.40); PLATELET COUNT 252 10/3/uL (150-400); RBC DISTRIBUTION WIDTH 13.3 % (12.0-16.0); RED CELL COUNT 3.85 10/6/uL (4.7-6.1); WHITE BLOOD CELLS 7.8 10/3/uL (4.5-10.5)
[2016-08-15 04:29] LABS: MANUAL DIFF NO %
[2016-08-15 04:34] LABS: PARTIAL THROMBO TIME 48.1 SEC (22.5-37.2)
[2016-08-15 04:40] LABS: CHLORIDE, SERUM 105 MMOL/L (96-112); CHOL/HDL RATIO(NOT ORDER) 3.6 (0-5); CHOLESTEROL 164 MG/DL (< 200); CO2 (CARBON DIOXIDE) 29 MMOL/L (24-34); CREATININE 0.87 MG/DL (0.70-1.30); GFR AFRICAN AMERICAN 106 ML/MIN (>=60); GFR NON AFRICAN AMERICAN 92 ML/MIN (>=60); GLUCOSE, SERUM 84 MG/DL (60-99); HDL CHOLESTEROL 46 MG/DL (> 39); LDL CHOLESTEROL 97 MG/DL (< 130); NON-HDL CHOLESTEROL 118 MG/DL (< 160); POTASSIUM, SERUM 3.5 MMOL/L (3.5-5.3); SODIUM, SERUM 138 MMOL/L (135-148)
[2016-08-15 04:41] LABS: BUN (BLOOD UREA NITROGEN) 6 MG/DL (6-23); TRIGLYCERIDE 105 MG/DL (< 150)
[2016-08-16 06:00] LABS: A/G RATIO 0.8 (0.7-1.9); ALBUMIN 3.1 G/DL (3.5-5.0); CALCIUM, SERUM 8.8 MG/DL (8.5-10.4); CHLORIDE, SERUM 104 MMOL/L (96-112); CO2 (CARBON DIOXIDE) 27 MMOL/L (24-34); CREATININE 0.81 MG/DL (0.70-1.30); GFR AFRICAN AMERICAN 110 ML/MIN (>=60); GFR NON AFRICAN AMERICAN 95 ML/MIN (>=60); GLOBULIN 3.8 G/DL (2.5-4.1); GLUCOSE, SERUM 85 MG/DL (60-99); POTASSIUM, SERUM 3.9 MMOL/L (3.5-5.3); SGOT(AST) 19 U/L (5-40); SGPT(ALT) 12 U/L (5-65); SODIUM, SERUM 139 MMOL/L (135-148); TOTAL PROTEIN 6.9 G/DL (6.0-8.5)
[2016-08-16 06:08] LABS: ALKALINE PHOSPHATASE 102 U/L (45-117); BUN (BLOOD UREA NITROGEN) 11 MG/DL (6-23); TOTAL BILIRUBIN 0.9 MG/DL (0-1.2)
[2016-08-16 06:19] LABS: MAX AMP (ADP) 30.8 MM (35-68); TEG - ANGLE 73.1 DEG (53-72); TEG - COAGULATION INDEX 1.1 (-3 TO 3); TEG - MAXIMUM AMPLITUDE 67.2 MM (50-70); TEG - RATE 6.8 MIN (5.0-10.0)
[2016-08-16 06:20] LABS: TEG PLAVIX/EFFIENT/TICLID(ADP) 82.7 % INHIB (< 40)
[2016-08-17 03:57] LABS: BASOPHILS 0.6 %; BASOPHILS ABSOLUTE 0.05 10/3/uL (0.0-0.16); EOSINOPHILS 4.1 %; EOSINOPHILS ABSOLUTE 0.37 10/3/uL (0.0-0.53); HEMOGLOBIN 12.5 g/dL (13.6-17.8); IMMATURE GRANULOCYTES 0.2 %; IMMATURE GRANULOCYTES ABSOLUTE 0.02 10/3/uL (0.0-0.11); LYMPHOCYTES 47.5 %; LYMPHOCYTES ABSOLUTE 4.27 10/3/uL (0.67-4.30); MEAN CORPUS HGB CONC 35.1 g/dL (32.0-36.0); MEAN CORPUSCULAR HEMOGLOB 35.9 pg (26.0-34.0); MEAN CORPUSCULAR VOLUME 102.3 fL (80-100); MONOCYTES 8.9 %; NEUTROPHILS 38.7 %; NEUTROPHILS ABSOLUTE 3.48 10/3/uL (2.02-8.40); PLATELET COUNT 271 10/3/uL (150-400); RBC DISTRIBUTION WIDTH 13.2 % (12.0-16.0); RED CELL COUNT 3.48 10/6/uL (4.7-6.1)
[2016-08-17 04:02] LABS: HEMATOCRIT 35.6 % (40.0-51.0); MANUAL DIFF NO %
[2016-08-17 04:11] LABS: INTERNATIONAL NORMAL RATI 1.1 UNITS (-)
[2016-08-17 04:30] LABS: % IRON SAT 24 % (20-50); A/G RATIO 0.8 (0.7-1.9); ALBUMIN 3.1 G/DL (3.5-5.0); ALKALINE PHOSPHATASE 104 U/L (45-117); BUN (BLOOD UREA NITROGEN) 11 MG/DL (6-23); CHLORIDE, SERUM 105 MMOL/L (96-112); CO2 (CARBON DIOXIDE) 28 MMOL/L (24-34); CREATININE 0.77 MG/DL (0.70-1.30); GFR AFRICAN AMERICAN 112 ML/MIN (>=60); GFR NON AFRICAN AMERICAN 97 ML/MIN (>=60); GLOBULIN 3.9 G/DL (2.5-4.1); GLUCOSE, SERUM 92 MG/DL (60-99); IRON BINDING CAPACITY 239 MCG/DL (250-450); IRON, SERUM 58 MCG/DL (35-150); POTASSIUM, SERUM 3.5 MMOL/L (3.5-5.3); SGOT(AST) 30 U/L (5-40); SGPT(ALT) 20 U/L (5-65); SODIUM, SERUM 141 MMOL/L (135-148); TOTAL BILIRUBIN 0.7 MG/DL (0-1.2)
[2016-08-17 05:54] LABS: TEG - ANGLE 70.3 DEG (53-72); TEG - MAXIMUM AMPLITUDE 68.4 MM (50-70); TEG - RATE 8.3 MIN (5.0-10.0)
[2016-08-17 05:55] LABS: TEG - COAGULATION INDEX -0.1 (-3 TO 3)
[2016-08-17 05:57] LABS: TEG PLAVIX/EFFIENT/TICLID(ADP) 61.5 % INHIB (< 40)
[2016-08-17 07:45] LABS: MAX AMP (ADP) 38.9 MM (35-68)
[2016-08-18 04:50] LABS: BUN (BLOOD UREA NITROGEN) 13 MG/DL (6-23); CALCIUM, SERUM 9.1 MG/DL (8.5-10.4); CHLORIDE, SERUM 105 MMOL/L (96-112); CO2 (CARBON DIOXIDE) 30 MMOL/L (24-34); CREATININE 0.86 MG/DL (0.70-1.30); GFR AFRICAN AMERICAN 107 ML/MIN (>=60); GFR NON AFRICAN AMERICAN 92 ML/MIN (>=60); GLUCOSE, SERUM 94 MG/DL (60-99); POTASSIUM, SERUM 4.4 MMOL/L (3.5-5.3); SODIUM, SERUM 140 MMOL/L (135-148)
[2016-08-19 05:31] LABS: TEG - ANGLE 69.4 DEG (53-72); TEG - COAGULATION INDEX -0.1 (-3 TO 3); TEG - MAXIMUM AMPLITUDE 68.9 MM (50-70); TEG - RATE 8.4 MIN (5.0-10.0)
[2016-08-19 05:32] LABS: MAX AMP (ADP) 60.9 MM (35-68); TEG PLAVIX/EFFIENT/TICLID(ADP) 18.9 % INHIB (< 40)
[2016-08-20 04:35] LABS: BASOPHILS 0.5 %; BASOPHILS ABSOLUTE 0.05 10/3/uL (0.0-0.16); EOSINOPHILS 2.9 %; EOSINOPHILS ABSOLUTE 0.28 10/3/uL (0.0-0.53); HEMATOCRIT 36.1 % (40.0-51.0); HEMOGLOBIN 12.2 g/dL (13.6-17.8); IMMATURE GRANULOCYTES 0.2 %; IMMATURE GRANULOCYTES ABSOLUTE 0.02 10/3/uL (0.0-0.11); LYMPHOCYTES ABSOLUTE 3.88 10/3/uL (0.67-4.30); MEAN CORPUS HGB CONC 33.8 g/dL (32.0-36.0); MEAN CORPUSCULAR HEMOGLOB 35.1 pg (26.0-34.0); MEAN CORPUSCULAR VOLUME 103.7 fL (80-100); MEAN PLATELET VOLUME 9.5 fL (9.2-13.0); MONOCYTES 13.2 %; MONOCYTES ABSOLUTE 1.28 10/3/uL (0.21-1.20); NEUTROPHILS 43.2 %; PLATELET COUNT 294 10/3/uL (150-400); RBC DISTRIBUTION WIDTH 13.1 % (12.0-16.0); RED CELL COUNT 3.48 10/6/uL (4.7-6.1); WHITE BLOOD CELLS 9.7 10/3/uL (4.5-10.5)
[2016-08-20 04:44] LABS: INTERNATIONAL NORMAL RATI 1.1 UNITS (-); PROTIME (NOT ORD) 13.6 SEC (12.0-14.5)
[2016-08-20 04:51] LABS: % IRON SAT 33 % (20-50); A/G RATIO 0.8 (0.7-1.9); ALBUMIN 3.2 G/DL (3.5-5.0); ALKALINE PHOSPHATASE 109 U/L (45-117); BUN (BLOOD UREA NITROGEN) 16 MG/DL (6-23); CALCIUM, SERUM 9.4 MG/DL (8.5-10.4); CHLORIDE, SERUM 100 MMOL/L (96-112); CREATININE 1.07 MG/DL (0.70-1.30); DIRECT BILIRUBIN 0.1 MG/DL (0.0-0.4); GFR AFRICAN AMERICAN 85 ML/MIN (>=60); GFR NON AFRICAN AMERICAN 73 ML/MIN (>=60); GLOBULIN 3.9 G/DL (2.5-4.1); GLUCOSE, SERUM 94 MG/DL (60-99); INDIRECT BILIRUBIN(NOT ORDER) 0.4 MG/DL (0.1-0.9); IRON BINDING CAPACITY 274 MCG/DL (250-450); IRON, SERUM 90 MCG/DL (35-150); MANUAL DIFF NO %; SGOT(AST) 42 U/L (5-40); SGPT(ALT) 37 U/L (5-65); SODIUM, SERUM 137 MMOL/L (135-148); TOTAL BILIRUBIN 0.5 MG/DL (0-1.2); TOTAL PROTEIN 7.1 G/DL (6.0-8.5)
[2016-08-20 04:52] LABS: CO2 (CARBON DIOXIDE) 35 MMOL/L (24-34)
[2016-08-20 07:25] LABS: TEG - ANGLE 70.9 DEG (53-72); TEG - COAGULATION INDEX -0.1 (-3 TO 3); TEG - MAXIMUM AMPLITUDE 68.6 MM (50-70); TEG - RATE 8.6 MIN (5.0-10.0)
[2016-08-20 07:35] LABS: TEG PLAVIX/EFFIENT/TICLID(ADP) 19.2 % INHIB (< 40)
[2016-08-20 07:36] LABS: MAX AMP (ADP) 24.4 MM (35-68)
[2016-08-20 13:41] LABS: CARBOXYHEMOGLOBIN 0.3 % (0-3); HCO3 (ACTUAL BICARBONATE) 25.9 MEQ/L (23-27); HEMOBLOGIN CONTENT 10.7 G/DL (14-18); INSTRUMENT SERIAL # 11843; METHEMOGLOBIN 0.5 % (0-3); MODE SIMV; O2 CONTENT 16.2 VOL% (18-24); OPERATOR ID 18642; PCO2 (CO2 TENSION) 38 MMHG (35-45); PO2 (O2 TENSION) 521 MMHG (79-93); PRESSURE SUPPORT 0 cm.H2O; SAMPLE Arterial; TIDAL VOLUME 700 ML; pH 7.46 (7.37-7.43)
[2016-08-20 13:57] LABS: HEMOGLOBIN 10.2 g/dL (13.6-17.8); MEAN CORPUS HGB CONC 34.8 g/dL (32.0-36.0); MEAN CORPUSCULAR HEMOGLOB 35.9 pg (26.0-34.0); MEAN CORPUSCULAR VOLUME 103.2 fL (80-100); MEAN PLATELET VOLUME 9.5 fL (9.2-13.0); RBC DISTRIBUTION WIDTH 13.1 % (12.0-16.0); RED CELL COUNT 2.84 10/6/uL (4.7-6.1); WHITE BLOOD CELLS 10.6 10/3/uL (4.5-10.5)
[2016-08-20 13:58] LABS: HEMATOCRIT 29.3 % (40.0-51.0); MANUAL DIFF YES %; PLATELET COUNT 171 10/3/uL (150-400)
[2016-08-20 14:06] LABS: INTERNATIONAL NORMAL RATI 1.3 UNITS (-); PARTIAL THROMBO TIME 29.3 SEC (22.5-37.2)
[2016-08-20 14:08] LABS: BUN (BLOOD UREA NITROGEN) 14 MG/DL (6-23); CALCIUM, SERUM 9.3 MG/DL (8.5-10.4); CHLORIDE, SERUM 109 MMOL/L (96-112); CREATININE 1.01 MG/DL (0.70-1.30); GFR AFRICAN AMERICAN 91 ML/MIN (>=60); GFR NON AFRICAN AMERICAN 79 ML/MIN (>=60); POTASSIUM, SERUM 3.7 MMOL/L (3.5-5.3)
[2016-08-20 14:09] LABS: CO2 (CARBON DIOXIDE) 29 MMOL/L (24-34); GLUCOSE, SERUM 61 MG/DL (60-99); SODIUM, SERUM 144 MMOL/L (135-148)
[2016-08-20 14:10] LABS: PROTIME (NOT ORD) 16.1 SEC (12.0-14.5)
[2016-08-20 14:18] LABS: BAND NEUTROPHILS 13 %; LYMPHOCYTES 7 %; LYMPHOCYTES ABSOLUTE (CALC) 0.74 10/3/uL (0.67-4.30); MONOCYTES 8 %; MONOCYTES ABSOLUTE (CALC) 0.85 10/3/uL (0.21-1.20); NEUTROPHILS ABSOLUTE (CALC) 9.01 10/3/uL (2.02-8.40); SEGMENTED NEUTROPHIL (0) 72 %; TOTAL NUCLEATED CELLS 100
[2016-08-20 14:19] LABS: MACROCYTES 1+ (5-10/OIF) (0-5/OIF); PLATELET ESTIMATE ADQ (ADEQUATE)
[2016-08-20 14:58] LABS: FIBRINOGEN 398 MG/DL (230-462)
[2016-08-20 19:14] LABS: HEMATOCRIT 27.8 % (40.0-51.0); HEMOGLOBIN 9.4 g/dL (13.6-17.8)
[2016-08-20 19:24] LABS: POTASSIUM, SERUM 4.8 MMOL/L (3.5-5.3)
[2016-08-20 19:59] LABS: BE (BASE EXCESS) -1.2 MEQ/L (0 +/- 2.5); CARBOXYHEMOGLOBIN 0.4 % (0-3); DEVICE NC; HCO3 (ACTUAL BICARBONATE) 23.7 MEQ/L (23-27); HEMOBLOGIN CONTENT 10.2 G/DL (14-18); INSTRUMENT SERIAL # 11843; METHEMOGLOBIN 0.4 % (0-3); O2 CONTENT 13.9 VOL% (18-24); OPERATOR ID 32193; PCO2 (CO2 TENSION) 41 MMHG (35-45); PO2 (O2 TENSION) 104 MMHG (79-93); SAMPLE Arterial; pH 7.39 (7.37-7.43)
[2016-08-21 03:38] LABS: BASOPHILS 0.1 %; BASOPHILS ABSOLUTE 0.01 10/3/uL (0.0-0.16); EOSINOPHILS 0 %; HEMATOCRIT 25.6 % (40.0-51.0); HEMOGLOBIN 8.6 g/dL (13.6-17.8); IMMATURE GRANULOCYTES 0.2 %; IMMATURE GRANULOCYTES ABSOLUTE 0.03 10/3/uL (0.0-0.11); LYMPHOCYTES 8.3 %; LYMPHOCYTES ABSOLUTE 1.02 10/3/uL (0.67-4.30); MEAN CORPUS HGB CONC 33.6 g/dL (32.0-36.0); MEAN CORPUSCULAR HEMOGLOB 35.2 pg (26.0-34.0); MEAN CORPUSCULAR VOLUME 104.9 fL (80-100); MEAN PLATELET VOLUME 9.4 fL (9.2-13.0); MONOCYTES 9.1 %; MONOCYTES ABSOLUTE 1.12 10/3/uL (0.21-1.20); NEUTROPHILS 82.3 %; NEUTROPHILS ABSOLUTE 10.16 10/3/uL (2.02-8.40); PLATELET COUNT 195 10/3/uL (150-400); RBC DISTRIBUTION WIDTH 13.4 % (12.0-16.0); RED CELL COUNT 2.44 10/6/uL (4.7-6.1); WHITE BLOOD CELLS 12.3 10/3/uL (4.5-10.5)
[2016-08-21 03:39] LABS: MANUAL DIFF NO %
[2016-08-21 03:44] LABS: INTERNATIONAL NORMAL RATI 1.2 UNITS (-); PROTIME (NOT ORD) 15.4 SEC (12.0-14.5)
[2016-08-21 03:51] LABS: BUN (BLOOD UREA NITROGEN) 20 MG/DL (6-23); CALCIUM, SERUM 8.9 MG/DL (8.5-10.4); CHLORIDE, SERUM 108 MMOL/L (96-112); CO2 (CARBON DIOXIDE) 24 MMOL/L (24-34); GFR AFRICAN AMERICAN 92 ML/MIN (>=60); GFR NON AFRICAN AMERICAN 80 ML/MIN (>=60); GLUCOSE, SERUM 119 MG/DL (60-99); POTASSIUM, SERUM 5.2 MMOL/L (3.5-5.3); SODIUM, SERUM 137 MMOL/L (135-148)
[2016-08-21 17:53] LABS: HEMOGLOBIN 9.4 g/dL (13.6-17.8)
[2016-08-21 17:55] LABS: HEMATOCRIT 28.2 % (40.0-51.0)
[2016-08-21 18:01] LABS: POTASSIUM, SERUM 4.4 MMOL/L (3.5-5.3)
[2016-08-22 05:45] LABS: BASOPHILS 0 %; EOSINOPHILS 0 %; HEMOGLOBIN 9.3 g/dL (13.6-17.8); IMMATURE GRANULOCYTES 0.2 %; IMMATURE GRANULOCYTES ABSOLUTE 0.02 10/3/uL (0.0-0.11); LYMPHOCYTES 15.7 %; LYMPHOCYTES ABSOLUTE 1.68 10/3/uL (0.67-4.30); MANUAL DIFF NO %; MEAN CORPUS HGB CONC 34.4 g/dL (32.0-36.0); MEAN CORPUSCULAR HEMOGLOB 36.2 pg (26.0-34.0); MEAN CORPUSCULAR VOLUME 105.1 fL (80-100); MEAN PLATELET VOLUME 10.3 fL (9.2-13.0); MONOCYTES 13.9 %; MONOCYTES ABSOLUTE 1.49 10/3/uL (0.21-1.20); NEUTROPHILS 70.2 %; NEUTROPHILS ABSOLUTE 7.51 10/3/uL (2.02-8.40); PLATELET COUNT 258 10/3/uL (150-400); RBC DISTRIBUTION WIDTH 13.5 % (12.0-16.0); RED CELL COUNT 2.57 10/6/uL (4.7-6.1); WHITE BLOOD CELLS 10.7 10/3/uL (4.5-10.5)
[2016-08-22 05:49] LABS: BUN (BLOOD UREA NITROGEN) 23 MG/DL (6-23); CALCIUM, SERUM 9.5 MG/DL (8.5-10.4); CREATININE 0.91 MG/DL (0.70-1.30); GFR AFRICAN AMERICAN 104 ML/MIN (>=60); GFR NON AFRICAN AMERICAN 89 ML/MIN (>=60); GLUCOSE, SERUM 116 MG/DL (60-99); POTASSIUM, SERUM 4.4 MMOL/L (3.5-5.3); SODIUM, SERUM 133 MMOL/L (135-148)
[2016-08-22 05:50] LABS: CHLORIDE, SERUM 94 MMOL/L (96-112); CO2 (CARBON DIOXIDE) 31 MMOL/L (24-34)
[2016-08-23 05:24] LABS: BASOPHILS 0.1 %; BASOPHILS ABSOLUTE 0.01 10/3/uL (0.0-0.16); EOSINOPHILS 0.2 %; EOSINOPHILS ABSOLUTE 0.02 10/3/uL (0.0-0.53); HEMOGLOBIN 9.8 g/dL (13.6-17.8); IMMATURE GRANULOCYTES 0.1 %; IMMATURE GRANULOCYTES ABSOLUTE 0.01 10/3/uL (0.0-0.11); LYMPHOCYTES 13.9 %; LYMPHOCYTES ABSOLUTE 1.14 10/3/uL (0.67-4.30); MEAN CORPUS HGB CONC 33.8 g/dL (32.0-36.0); MEAN CORPUSCULAR HEMOGLOB 35.1 pg (26.0-34.0); MEAN CORPUSCULAR VOLUME 103.9 fL (80-100); MONOCYTES 13.6 %; MONOCYTES ABSOLUTE 1.11 10/3/uL (0.21-1.20); NEUTROPHILS 72.1 %; PLATELET COUNT 297 10/3/uL (150-400); RBC DISTRIBUTION WIDTH 13.1 % (12.0-16.0); RED CELL COUNT 2.79 10/6/uL (4.7-6.1); WHITE BLOOD CELLS 8.2 10/3/uL (4.5-10.5)
[2016-08-23 05:31] LABS: MANUAL DIFF NO %
[2016-08-23 05:36] LABS: CHLORIDE, SERUM 98 MMOL/L (96-112); CO2 (CARBON DIOXIDE) 32 MMOL/L (24-34); CREATININE 0.64 MG/DL (0.70-1.30); GFR AFRICAN AMERICAN 121 ML/MIN (>=60); GFR NON AFRICAN AMERICAN 104 ML/MIN (>=60); GLUCOSE, SERUM 114 MG/DL (60-99); POTASSIUM, SERUM 3.8 MMOL/L (3.5-5.3); SODIUM, SERUM 137 MMOL/L (135-148)
[2016-08-23 05:37] LABS: BUN (BLOOD UREA NITROGEN) 27 MG/DL (6-23)
[2016-08-24 04:36] LABS: BASOPHILS 0.2 %; BASOPHILS ABSOLUTE 0.02 10/3/uL (0.0-0.16); EOSINOPHILS 1.1 %; EOSINOPHILS ABSOLUTE 0.09 10/3/uL (0.0-0.53); HEMATOCRIT 30.2 % (40.0-51.0); HEMOGLOBIN 10.1 g/dL (13.6-17.8); IMMATURE GRANULOCYTES 0.1 %; IMMATURE GRANULOCYTES ABSOLUTE 0.01 10/3/uL (0.0-0.11); LYMPHOCYTES 19.5 %; LYMPHOCYTES ABSOLUTE 1.66 10/3/uL (0.67-4.30); MEAN CORPUS HGB CONC 33.4 g/dL (32.0-36.0); MEAN CORPUSCULAR HEMOGLOB 34.9 pg (26.0-34.0); MEAN CORPUSCULAR VOLUME 104.5 fL (80-100); MEAN PLATELET VOLUME 10.2 fL (9.2-13.0); MONOCYTES 14.1 %; NEUTROPHILS ABSOLUTE 5.53 10/3/uL (2.02-8.40); PLATELET COUNT 350 10/3/uL (150-400); RBC DISTRIBUTION WIDTH 13.1 % (12.0-16.0); RED CELL COUNT 2.89 10/6/uL (4.7-6.1); WHITE BLOOD CELLS 8.5 10/3/uL (4.5-10.5)
[2016-08-24 04:37] LABS: CALCIUM, SERUM 9.4 MG/DL (8.5-10.4); CHLORIDE, SERUM 98 MMOL/L (96-112); CO2 (CARBON DIOXIDE) 32 MMOL/L (24-34); CREATININE 0.71 MG/DL (0.70-1.30); GFR AFRICAN AMERICAN 116 ML/MIN (>=60); GFR NON AFRICAN AMERICAN 100 ML/MIN (>=60); GLUCOSE, SERUM 93 MG/DL (60-99); POTASSIUM, SERUM 3.4 MMOL/L (3.5-5.3); SODIUM, SERUM 137 MMOL/L (135-148)
[2016-08-24 04:39] LABS: MANUAL DIFF NO %
[2016-08-24 04:44] LABS: BUN (BLOOD UREA NITROGEN) 33 MG/DL (6-23)
[2016-08-24 09:52] LABS: INTERNATIONAL NORMAL RATI 1.2 UNITS (-); PARTIAL THROMBO TIME 34.7 SEC (22.5-37.2); PROTIME (NOT ORD) 15.4 SEC (12.0-14.5)
[2016-08-24 10:12] LABS: PFA (COL/EPI) 82 SEC (72-180)
[2016-08-25 04:48] LABS: BASOPHILS 0.6 %; BASOPHILS ABSOLUTE 0.05 10/3/uL (0.0-0.16); EOSINOPHILS 4.9 %; EOSINOPHILS ABSOLUTE 0.43 10/3/uL (0.0-0.53); HEMATOCRIT 28.8 % (40.0-51.0); HEMOGLOBIN 9.6 g/dL (13.6-17.8); IMMATURE GRANULOCYTES 0.2 %; IMMATURE GRANULOCYTES ABSOLUTE 0.02 10/3/uL (0.0-0.11); LYMPHOCYTES 25.9 %; LYMPHOCYTES ABSOLUTE 2.25 10/3/uL (0.67-4.30); MEAN CORPUS HGB CONC 33.3 g/dL (32.0-36.0); MEAN CORPUSCULAR VOLUME 105.1 fL (80-100); MEAN PLATELET VOLUME 9.8 fL (9.2-13.0); MONOCYTES 13.2 %; MONOCYTES ABSOLUTE 1.15 10/3/uL (0.21-1.20); NEUTROPHILS 55.2 %; PLATELET COUNT 383 10/3/uL (150-400); RBC DISTRIBUTION WIDTH 13.1 % (12.0-16.0); RED CELL COUNT 2.74 10/6/uL (4.7-6.1); WHITE BLOOD CELLS 8.7 10/3/uL (4.5-10.5)
[2016-08-25 04:49] LABS: MANUAL DIFF NO %
[2016-08-25 05:05] LABS: A/G RATIO 0.9 (0.7-1.9); ALBUMIN 2.9 G/DL (3.5-5.0); ALKALINE PHOSPHATASE 77 U/L (45-117); BUN (BLOOD UREA NITROGEN) 30 MG/DL (6-23); CALCIUM, SERUM 8.4 MG/DL (8.5-10.4); CHLORIDE, SERUM 103 MMOL/L (96-112); CO2 (CARBON DIOXIDE) 30 MMOL/L (24-34); CREATININE 0.66 MG/DL (0.70-1.30); GFR AFRICAN AMERICAN 119 ML/MIN (>=60); GFR NON AFRICAN AMERICAN 103 ML/MIN (>=60); GLOBULIN 3.3 G/DL (2.5-4.1); GLUCOSE, SERUM 80 MG/DL (60-99); POTASSIUM, SERUM 4.3 MMOL/L (3.5-5.3); SGOT(AST) 21 U/L (5-40); SGPT(ALT) 17 U/L (5-65); SODIUM, SERUM 139 MMOL/L (135-148); TOTAL BILIRUBIN 1.2 MG/DL (0-1.2); TOTAL PROTEIN 6.2 G/DL (6.0-8.5)
[2016-08-26 05:39] LABS: BASOPHILS 0.5 %; BASOPHILS ABSOLUTE 0.04 10/3/uL (0.0-0.16); EOSINOPHILS 5.8 %; EOSINOPHILS ABSOLUTE 0.49 10/3/uL (0.0-0.53); HEMATOCRIT 26.8 % (40.0-51.0); HEMOGLOBIN 9.1 g/dL (13.6-17.8); IMMATURE GRANULOCYTES 0.2 %; IMMATURE GRANULOCYTES ABSOLUTE 0.02 10/3/uL (0.0-0.11); LYMPHOCYTES 20.5 %; LYMPHOCYTES ABSOLUTE 1.73 10/3/uL (0.67-4.30); MEAN CORPUSCULAR HEMOGLOB 35.4 pg (26.0-34.0); MEAN CORPUSCULAR VOLUME 104.3 fL (80-100); MEAN PLATELET VOLUME 9.5 fL (9.2-13.0); MONOCYTES 12.5 %; MONOCYTES ABSOLUTE 1.05 10/3/uL (0.21-1.20); NEUTROPHILS 60.5 %; NEUTROPHILS ABSOLUTE 5.09 10/3/uL (2.02-8.40); PLATELET COUNT 375 10/3/uL (150-400); RBC DISTRIBUTION WIDTH 12.9 % (12.0-16.0); RED CELL COUNT 2.57 10/6/uL (4.7-6.1); WHITE BLOOD CELLS 8.4 10/3/uL (4.5-10.5)
[2016-08-26 05:44] LABS: MANUAL DIFF NO %
[2016-08-26 05:52] LABS: CALCIUM, SERUM 8.1 MG/DL (8.5-10.4); CHLORIDE, SERUM 99 MMOL/L (96-112); CO2 (CARBON DIOXIDE) 31 MMOL/L (24-34); CREATININE 0.76 MG/DL (0.70-1.30); GFR AFRICAN AMERICAN 113 ML/MIN (>=60); GFR NON AFRICAN AMERICAN 97 ML/MIN (>=60); GLUCOSE, SERUM 90 MG/DL (60-99); POTASSIUM, SERUM 3.9 MMOL/L (3.5-5.3); SODIUM, SERUM 135 MMOL/L (135-148)
[2016-08-26 05:53] LABS: BUN (BLOOD UREA NITROGEN) 16 MG/DL (6-23)
[2016-08-27 05:16] LABS: BASOPHILS 0.3 %; BASOPHILS ABSOLUTE 0.03 10/3/uL (0.0-0.16); EOSINOPHILS 4.4 %; EOSINOPHILS ABSOLUTE 0.46 10/3/uL (0.0-0.53); HEMATOCRIT 29.3 % (40.0-51.0); HEMOGLOBIN 10.1 g/dL (13.6-17.8); IMMATURE GRANULOCYTES 0.4 %; IMMATURE GRANULOCYTES ABSOLUTE 0.04 10/3/uL (0.0-0.11); LYMPHOCYTES 14.1 %; LYMPHOCYTES ABSOLUTE 1.47 10/3/uL (0.67-4.30); MANUAL DIFF NO %; MEAN CORPUS HGB CONC 34.5 g/dL (32.0-36.0); MEAN CORPUSCULAR HEMOGLOB 35.2 pg (26.0-34.0); MEAN CORPUSCULAR VOLUME 102.1 fL (80-100); MEAN PLATELET VOLUME 9.9 fL (9.2-13.0); MONOCYTES 9.7 %; MONOCYTES ABSOLUTE 1.01 10/3/uL (0.21-1.20); NEUTROPHILS 71.1 %; NEUTROPHILS ABSOLUTE 7.45 10/3/uL (2.02-8.40); PLATELET COUNT 410 10/3/uL (150-400); RBC DISTRIBUTION WIDTH 12.9 % (12.0-16.0); RED CELL COUNT 2.87 10/6/uL (4.7-6.1); WHITE BLOOD CELLS 10.5 10/3/uL (4.5-10.5)
[2016-08-27 05:32] LABS: CALCIUM, SERUM 8.4 MG/DL (8.5-10.4); CHLORIDE, SERUM 97 MMOL/L (96-112); CO2 (CARBON DIOXIDE) 33 MMOL/L (24-34); CREATININE 0.63 MG/DL (0.70-1.30); GFR AFRICAN AMERICAN 122 ML/MIN (>=60); GFR NON AFRICAN AMERICAN 105 ML/MIN (>=60); GLUCOSE, SERUM 96 MG/DL (60-99); POTASSIUM, SERUM 3.8 MMOL/L (3.5-5.3); SODIUM, SERUM 137 MMOL/L (135-148)
[2016-08-27 05:35] LABS: BUN (BLOOD UREA NITROGEN) 10 MG/DL (6-23)
[2016-08-28] MEDS ORDERED: VITC500 PO (10:03)
[2016-08-28] MEDS ORDERED: LIPITOR40 PO (10:03)
[2016-08-28] MEDS ORDERED: ASAB PO (10:03)
[2016-08-28] MEDS ORDERED: LOP25 PO (10:04)
[2016-08-28] MEDS ORDERED: PLAVIX PO (10:04)
[2016-08-28] MEDS ORDERED: PROVHFA INH (10:05)
[2016-08-28] MEDS ORDERED: P5 PO (10:05)
[2016-08-28] MEDS ORDERED: SPIRIVA RESPIMAT INH (10:05)
[2016-08-28] MEDS ORDERED: NORCO1 TA1 PO (10:05)
[2016-09-08] MEDS ORDERED: NORCO1 TA1 PO (14:57)
[2016-09-08] MEDS ORDERED: LOP25 PO (14:59)
[2016-09-08] MEDS ORDERED: P5 (14:59)
[2016-09-08] MEDS ORDERED: LIPITOR40 PO (15:00)
[2016-09-08] MEDS ORDERED: PLAVIX PO (15:00)
[2016-09-08] MEDS ORDERED: SPIRIVA RESPIMAT INH (15:00)
[2016-09-08] MEDS ORDERED: ASAB PO (15:03)
[2016-09-08] MEDS ORDERED: TYLENOL PM PO (15:04)
[2016-09-08] MEDS ORDERED: T PO (15:04)
[2016-09-08] MEDS ORDERED: PRILOSEC OTC20 MG PO (15:05)
[2016-09-08] MEDS ORDERED: PROAIRRESP INH (15:07)
[2016-09-11] MEDS ORDERED: DURICEF PO (12:11)
[2016-09-11] MEDS ORDERED: FLOMAX4 PO (12:11)
== END 2016-08-28 16:16 | disposition home or self-care (01) | DRG 234 ==
LOC: ER 04:35 → 2SO 05:31 → SDC/OF 08-20 10:22 → CVICU 08-20 13:05 → 5NO 08-21 17:06
PROVIDERS: Internal Medicine Cardiovascular Disease; Nurse Practitioner; Nurse Practitioner Family; Surgery; Thoracic Surgery (Cardiothoracic Vascular Surgery)
PROC: 047L3ZZ Dilation of Left Femoral Artery, Percutaneous Approach (ICD-10-PCS; principal; 2016-08-13 11:45)
PROC: 021209W Bypass Coronary Artery, Three Arteries from Aorta with Autologous Venous Tissue, Open Approach (ICD-10-PCS; 2016-08-13 11:45)
PROC: B41D1ZZ Fluoroscopy of Aorta and Bilateral Lower Extremity Arteries using Low Osmolar Contrast (ICD-10-PCS; 2016-08-13 11:45)
PROC: 047J3DZ Dilation of Left External Iliac Artery with Intraluminal Device, Percutaneous Approach (ICD-10-PCS; 2016-08-13 11:45)
PROC: 02100Z9 Bypass Coronary Artery, One Artery from Left Internal Mammary, Open Approach (ICD-10-PCS; 2016-08-13 11:45)
PROC: B41G1ZZ Fluoroscopy of Left Lower Extremity Arteries using Low Osmolar Contrast (ICD-10-PCS; 2016-08-13 11:45)
PROC: 4A023N7 Measurement of Cardiac Sampling and Pressure, Left Heart, Percutaneous Approach (ICD-10-PCS; 2016-08-14)
PROC: B2151ZZ Fluoroscopy of Left Heart using Low Osmolar Contrast (ICD-10-PCS; 2016-08-14)
PROC: 06BP4ZZ Excision of Right Saphenous Vein, Percutaneous Endoscopic Approach (ICD-10-PCS; 2016-08-14)
PROC: B2111ZZ Fluoroscopy of Multiple Coronary Arteries using Low Osmolar Contrast (ICD-10-PCS; 2016-08-14)
PROC: 5A1221Z Performance of Cardiac Output, Continuous (ICD-10-PCS; 2016-08-20)
PROC: B246ZZ4 Ultrasonography of Right and Left Heart, Transesophageal (ICD-10-PCS; 2016-08-20)
PROC: 0W9930Z Drainage of Right Pleural Cavity with Drainage Device, Percutaneous Approach (ICD-10-PCS; 2016-08-24)
DX: I21.4 Non-ST elevation (NSTEMI) myocardial infarction (principal); J90 Pleural effusion, not elsewhere classified; J44.9 Chronic obstructive pulmonary disease, unspecified; J95.811 Postprocedural pneumothorax; I25.10 Atherosclerotic heart disease of native coronary artery without angina pectoris; I70.209 Unspecified atherosclerosis of native arteries of extremities, unspecified extremity; N40.0 Benign prostatic hyperplasia without lower urinary tract symptoms; K21.9 Gastro-esophageal reflux disease without esophagitis; Z82.49 Family history of ischemic heart disease and other diseases of the circulatory system; Z95.5 Presence of coronary angioplasty implant and graft; I25.2 Old myocardial infarction; F17.210 Nicotine dependence, cigarettes, uncomplicated; Z79.02 Long term (current) use of antithrombotics/antiplatelets
CPT/HCPCS: 32555; 36415; 37221; 37224; 71010; 71020; 71250; 75625; 75716; 76937; 80048; 80053; 80061; 81001; 82248; 82330; 82803; 82805; 82947; 82962; 83036; 83540; 83550; 83735; 84132; 84295; 84484; 85014; 85018; 85025; 85347; 85384; 85576; 85576-59; 85610; 85730; 86850; 86900; 86901; 87641; 93005; 93312; 93320; 93325; 93458; 93880; 93926; 94002; 94010; 94640; 94660; 94729; 94770; 97116-GP; 97162-GP; 97530-GP; 99152; 99153; 99285; A9270-GY; C1713; C1725; C1757; C1760; C1769; C1874; C1876; C1884; C1887; C1894; C8929; G0365; G8978-CK-GP; G8979-CK-GP; J0690; J1170; J1644; J1940; J2150; J2250; J2370; J2405; J2440; J2550; J2720; J2930; J3010; J3370; J3475; J3480; P9045; P9047; Q9957; Q9967

== ENCOUNTER 2016-11-23 06:30 | Inpatient (IN) | payer OTHER ==
[2016-11-21 11:39] LABS: HEMOGLOBIN 13.6 g/dL (13.6-17.8)
[2016-11-21 11:43] LABS: HEMATOCRIT 41.3 % (40.0-51.0)
[2016-11-21 11:50] LABS: CALCIUM, SERUM 8.9 MG/DL (8.5-10.4); CHLORIDE, SERUM 104 MMOL/L (96-112); CO2 (CARBON DIOXIDE) 31 MMOL/L (24-34); CREATININE 0.81 MG/DL (0.70-1.30); GFR AFRICAN AMERICAN 110 ML/MIN (>=60); GFR NON AFRICAN AMERICAN 95 ML/MIN (>=60); GLUCOSE, SERUM 89 MG/DL (60-99); POTASSIUM, SERUM 3.5 MMOL/L (3.5-5.3); SODIUM, SERUM 139 MMOL/L (135-148)
[2016-11-21 11:56] LABS: BUN (BLOOD UREA NITROGEN) 12 MG/DL (6-23)
[2016-11-21 12:41] LABS: ASCORBIC ACID (UR NOT ORDER) NEG (NEG); BILIRUBIN, URINE NEGATIVE (NEG); KETONE, URINE NEGATIVE (NEG); LEUKOCYTE ESTERASE(NOT OR SMALL (NEG); WBC (NOT ORDERED) (RFLEX) 3 (0-5)
[~2016-11-23] VITALS: Ht 185.4 cm; Wt 54.0 kg
--- NOTE | ~2016-11-23 | OP ---
Record Of Operation [facility] [address] [place]. [address] NAME: DORA ROSARIO : 51 STATUS : ADM IN PAT#: [id number] AGE: 61 ADM/REG DATE : 11/23/16 MR#: [id number] REPORT SERV DATE: 11/24/16 DICTATED BY: CAROLYN KING DATE: 11/24/16 REPORT STATUS : Draft TRANSCRIBED BY: MODL DATE: 11/24/16 DATE OF PROCEDURE: 11/23/2016 TITLE OF OPERATION: Robot-assisted laparoscopic simple prostatectomy. PREOPERATIVE DIAGNOSIS: BPH with obstruction. POSTOPERATIVE DIAGNOSIS: BPH with obstruction. INDICATIONS: Mr. Rosario is a 61-year-old male with a history of BPH with obstruction. He has intermittent urinary retention and severe lower urinary tract symptoms. He has failed medical management. He is here for robotic simple prostatectomy. His gland is over 100 g. ANESTHESIA: General. COMPLICATIONS: None. IMPLANTS: 24-Irish 3-way Kyle catheter. #10 round MELISSA drain. SPECIMEN: Prostatic adenoma. NARRATIVE: The patient was brought to the operating room, identified by his wristband. General anesthesia was induced. Ancef was given for preoperative antibiotics. He was placed in dorsal lithotomy position, prepped and draped in sterile fashion. A 16-Irish Kyle catheter was placed into his urethra and into his bladder. The balloon was inflated 10 mL of sterile water. The abdomen was insufflated to a pressure of 15 mmHg using a Veress needle. An 8 mm port was placed in a supraumbilical position. The abdomen was inspected. There were no adhesions. A standard Xi port placement was performed with two 8 mm ports on left side of the body and one on the right side of the body. A 12 mm port was placed in the right lower quadrant and a 5 mm port was placed in right upper quadrant for life enrichment assistant ports. The patient was placed in Trendelenburg and the robot was docked. The bladder was dropped off the anterior abdominal wall using electrocautery exposing the pubic bone and prostate. A horizontal cystotomy was made proximal to the prostate. The prostatic adenoma was identified and marked with a 0 Vicryl suture using clips. The bladder mucosa was scored distal to the trigone. The dissection was carried through the detrusor fibers onto the adenoma. The adenoma was traced down to the junction with the transitional zone of the prostate. The adenoma was dissected off the transitional zone from the base to the apex of the prostate. The adenoma was then dissected off the capsule laterally and superiorly. The urethra was identified and transected. The adenoma was placed into the EndoCatch bag. Pinpoint bleeders were controlled with bipolar cautery. The bladder mucosa was advanced into the prostatic fossa using a 3-0 V-Loc suture. The dorsal venous penetrators were oversewn with a 3-0 V-Loc suture in a horseshoe configuration. A 24-Irish 3-way Kyle catheter was placed with robotic assistance. The cystotomy was closed in two layers. The first layer was a mucosal layer using a 3-0 V-Loc suture. The 2nd layer was a seromuscular layer using a running V-Loc suture. The catheter was irrigated. The connection was water tight. The balloon was inflated with 40 mL of sterile water. He was placed on traction. Record Of Operation [address] [place]. [address] NAME: DORA ROSARIO : 51 STATUS : ADM IN [facility]#: [id number] AGE: 61 ADM/REG DATE : 11/23/16 MR#: [id number] REPORT SERV DATE: 11/24/16 DICTATED BY: CAROLYN KING DATE: 11/24/16 REPORT STATUS : Draft TRANSCRIBED BY: NELI DATE: 11/24/16 CBI was initiated. The urine was clear. The robot was undocked. The life enrichment assistant port was closed with a 0 Vicryl suture using Andrew-Cisco device. The left lateral robotic port was used to place a #10 round MELISSA drain, which was sutured in place with a 2-0 Prolene suture. All other ports were removed. The supraumbilical incision was enlarged to the skin and fascia level. The prostatic adenoma was removed and sent to pathology for analysis. The fascia was closed with 0 Monocryl sutures in a [id number] fashion. Skin was closed with 4-0 Monocryl suture in a subcuticular fashion. A Dermabond dressing was placed. The patient was awoken from anesthesia and transferred to recovery room in stable condition. There were no complications. ESTHELA/NELI Carolyn King MD / [id number] CC: Carolyn King MD
[~2016-11-23 06:30] MED LIST changes: +ASAB PO; +DURICEF PO; +FLOMAX4 PO; +LIPITOR40 PO; +LOP25 PO; +NORCO1 TA1 PO; +P5; +P5 PO; +PRILOSEC OTC20 MG PO; +PROAIRRESP INH; +PROVHFA INH; +SPIRIVA RESPIMAT INH; +T PO; +TYLENOL PM PO; +VITC500 PO
[2016-11-23 13:15] LABS: BASOPHILS 0.3 %; BASOPHILS ABSOLUTE 0.02 10/3/uL (0.0-0.16); EOSINOPHILS 0.8 %; EOSINOPHILS ABSOLUTE 0.06 10/3/uL (0.0-0.53); HEMOGLOBIN 11.9 g/dL (13.6-17.8); IMMATURE GRANULOCYTES 0.1 %; IMMATURE GRANULOCYTES ABSOLUTE 0.01 10/3/uL (0.0-0.11); LYMPHOCYTES 13.3 %; LYMPHOCYTES ABSOLUTE 1.03 10/3/uL (0.67-4.30); MEAN CORPUS HGB CONC 33.6 g/dL (32.0-36.0); MEAN CORPUSCULAR HEMOGLOB 32.8 pg (26.0-34.0); MEAN PLATELET VOLUME 9.3 fL (9.2-13.0); MONOCYTES 1.9 %; MONOCYTES ABSOLUTE 0.15 10/3/uL (0.21-1.20); NEUTROPHILS 83.6 %; NEUTROPHILS ABSOLUTE 6.47 10/3/uL (2.02-8.40); PLATELET COUNT 263 10/3/uL (150-400); RBC DISTRIBUTION WIDTH 13.6 % (12.0-16.0); RED CELL COUNT 3.63 10/6/uL (4.7-6.1)
[2016-11-23 13:16] LABS: HEMATOCRIT 35.4 % (40.0-51.0); MANUAL DIFF NO %; MEAN CORPUSCULAR VOLUME 97.5 fL (80-100); WHITE BLOOD CELLS 7.7 10/3/uL (4.5-10.5)
[2016-11-23 13:23] LABS: BUN (BLOOD UREA NITROGEN) 14 MG/DL (6-23); CALCIUM, SERUM 8.5 MG/DL (8.5-10.4); CHLORIDE, SERUM 106 MMOL/L (96-112); CO2 (CARBON DIOXIDE) 27 MMOL/L (24-34); CREATININE 0.73 MG/DL (0.70-1.30); GFR AFRICAN AMERICAN 114 ML/MIN (>=60); GFR NON AFRICAN AMERICAN 99 ML/MIN (>=60); GLUCOSE, SERUM 103 MG/DL (60-99); POTASSIUM, SERUM 3.6 MMOL/L (3.5-5.3); SODIUM, SERUM 139 MMOL/L (135-148)
[2016-11-24] MEDS ORDERED: DSS PO (12:56)
[2016-11-24] MEDS ORDERED: CIP5 PO (12:57)
[2016-11-24] MEDS ORDERED: PCET PO (12:57)
== END 2016-11-24 18:59 | disposition home or self-care (01) | DRG 718 ==
LOC: ENRESERV → ENRESERVDT → ENRESERVTM → SDC/OF 08:33 → PACU 12:45 → 4SO 15:12
PROVIDERS: Urology
PROC: 8E0W4CZ Robotic Assisted Procedure of Trunk Region, Percutaneous Endoscopic Approach (ICD-10-PCS; 2016-11-23)
PROC: 0VB04ZZ Excision of Prostate, Percutaneous Endoscopic Approach (ICD-10-PCS; principal; 2016-11-23 09:30)
DX: N40.1 Benign prostatic hyperplasia with lower urinary tract symptoms (principal); I10 Essential (primary) hypertension; J44.9 Chronic obstructive pulmonary disease, unspecified; I25.10 Atherosclerotic heart disease of native coronary artery without angina pectoris; Z95.1 Presence of aortocoronary bypass graft; F17.210 Nicotine dependence, cigarettes, uncomplicated
CPT/HCPCS: 36415; 80048; 81001; 82570; 85014; 85018; 85025; 86850; 86900; 86901; 87086; 88307; 93005; A9270-GY; J0690; J1170; J2250; J2370; J2405; J2710; J2795; J3010